=== PATIENT | male | born 1950 | race Caucasian/White ===

== ENCOUNTER 2018-05-02 18:06 | Emergency (ER) | payer MEDICARE, SELFPAY ==
[2018-05-02 18:06] VITALS: BP 135/84; PULSE 71; RESP 14; O2SAT 97
[2018-05-02 18:07] VITALS: BP 135/84; PULSE 70; RESP 18; TEMP 36.6; O2SAT 98; BMI 27.5
--- NOTE | 2018-05-02 19:30 | RAD_ITS ---
STUDY: X-RAY - PARANASAL SINUSES REASON FOR EXAM: Male, 67 years old. Laceration to the left ear TECHNIQUE: 3 view(s) of the paranasal sinuses were obtained. COMPARISON: None. FINDINGS: Normal visualized frontal, maxillary, ethmoidal and sphenoid sinuses. Normal visualized facial bones. The soft tissue structures are unremarkable. RAD/Sinuses min 3 Views IMPRESSION: Normal x-rays of the paranasal sinuses. Electronically Signed: Onofre Dominique DO at 20:40 EDT Tel , Service support ,
[2018-05-02] MEDS: HYDROcodone Bitartrate/Apap 5/325 Tablet PO (19:45)
--- NOTE | 2018-05-02 19:46 | ED.DCSUM_ITS ---
- ER Visit Summary Date of Service: 05/02/18 Chief Complaint: Left ear laceration History of Present Illness: The patient is a 67 M presents to the emergency department left ear laceration. Patient was grinding a piece of metal. He states that he felt blood dripping from his ear. He cannot recall actually being injured. He denies any other injury. His tetanus is up-to-date. He takes no daily medications. He denies any change in hearing. Physical Examination: Patient has a 2 cm full-thickness laceration that goes through and through the left ear. There is some tenderness to palpation. There is no hematoma. TM itself is intact. Neck is supple. Rest of exam is unremarkable. Test Results: [] Emergency Department Course and Treatment: The laceration did seem much smaller , but once it was finally anesthetized, it was full-thickness through the cartilage of the pinna of the ear. I did obtain plain films to make sure there was no retained metallic bodies. These were unremarkable. The cartilage was closed with rapid absorbing Vicryl with good reapproximation. The area was irrigated and the skin was closed with 11 simple interrupted suture. As this was a full-thickness puncture, the patient will be placed on antibiotics. I did counselor/art therapist him that this area can sometimes be difficult to heal and is at risk for infection. He did state if anything changes, he will return immediately. The patient will be discharged. Treatment Plan: [] Disposition: Discharge Impression: 1. 3 cm full-thickness tear laceration with complex repair This note was generated with [employer] dictation software. It may contain incorrect words, spelling, and punctuation that were not noted in review of the chart prior to signing ED Disposition - Plan for ED Patient: Chief Complaint: Laceration Instructions: ED Laceration All Prescriptions: Cephalexin [Keflex] 500 mg PO Q6 #40 cap Referrals: Williams Anders MD [STAFF PHYSICIAN] -
[2018-05-02] MEDS: Cephalexin 250 MG Capsule 500 MG PO (21:12)
[2018-05-02 21:15] VITALS: BP 135/89; PULSE 70; RESP 14; O2SAT 97
== END 2018-05-02 21:18 | disposition home or self-care (01) ==
PROVIDERS: Emergency Provider Emergency Medicine
DX: S01.312A Laceration without foreign body of left ear, initial encounter (principal); X58.XXXA Exposure to other specified factors, initial encounter; Y93.89 Activity, other specified; Y92.9 Unspecified place or not applicable; Z72.0 Tobacco use
CPT/HCPCS: 12052; 70220; 99283

== ENCOUNTER 2023-08-19 19:44 | Emergency (ER) | payer MEDICARE, SELFPAY ==
[2023-08-19 19:45] VITALS: BP 116/99; PULSE 78; RESP 15; TEMP 36.6; O2SAT 97; BMI 29.2
--- NOTE | 2023-08-19 20:11 | RAD_ITS ---
INDICATION: Injury/Pain EXAMINATION/TECHNIQUE: X-RAY - XR cervical spine with lateral, AP, odontoid views COMPARISON: None. FINDINGS: This patient has no significant listhesis. Mild disc narrowing C2/C3, C5/C6 and C6/C7. Minimal multilevel anterior osteophytosis. Mild mid to lower cervical spine uncovertebral joint spurring. Multilevel facet arthropathy. Prevertebral soft tissues are within normal limits. Lung apices show no acute abnormality. C1/2 relationship is preserved. RAD/Cerv Spine 2 or 3 Views IMPRESSION: Cervical spine degenerative change with no acute fracture identified. Electronically Signed: Vinicius Morgan MD at 20:29 EDT ,
--- NOTE | 2023-08-19 20:14 | EX.ED.DYSGE1 ---
HPI History of Present Illness Chief Complaint: Other, Pain/Inj Informant: patient Onset/Context/Timing Onset: Yesterday Context: Gradual Onset Timing: Continuous Quality: Throbbing but sharp with movement Location: Right cervical paraspinal muscles Worsened by: Movement Relieved by: Rest Narrative Narrative: Patient presents with neck pain that began yesterday. Patient states it is gradually getting worse. Patient denies any trauma or injury. Patient states it is mainly over the right side of his neck. Patient states it is worse with movement. Patient states it is better with rest. Patient denies any radiation of the pain. Patient denies any paresthesias or weakness. Patient states he was taking Tylenol at home with no relief. [facility] Medical History (Updated 08/19/23 @ 20:[address] Ricardo Tran DO) Anxiety and depression Bone fracture Home Medications cyclobenzaprine 10 mg tablet 10 mg PO QHS PRN PRN Muscle Spasm #10 TABLETS 08/19/23 [Rx Last Taken Unknown] hydrocodone-acetaminophen 5-325mg 5mg-325mg 1 tab PO Q6H PRN PRN Pain 3 days #10 TABLETS 08/19/23 [Rx Last Taken Unknown] Allergy/AdvReac Type Severity Reaction Status Date / Time No Known Allergies Allergy Verified 08/19/23 19:49 Family History (Updated 05/16/18 @ 16:43 by Juany Frias) Father Diabetes Hypertension High cholesterol Psychiatric care Sister Depression (emotion) Psychiatric care Brother Epilepsy Seizures Surgical History (Updated 08/19/23 @ 20:[address] Ricardo Tran DO) Hx of appendectomy S/P ORIF (open reduction internal fixation) fracture Social History Smoking Status: Former smoker alcohol intake: former substance use type: does not use ROS ROS ED Constitutional Constitutional ED: Denies chills or fever(s) Eyes Eyes: Denies blurry vision or change in vision ENT ENT ED: Denies rhinorrhea or sore throat Cardiovascular Cardiovascular: Denies chest pain or palpitations Respiratory/Chest Respiratory/Chest: Denies cough or dyspnea Gastrointestinal Gastrointestinal: Denies nausea or vomiting Genitourinary Genitourinary ED: Denies dysuria or hematuria Musculoskeletal Musculoskeletal: Reports neck pain; Denies back pain Integumentary Denies abscess or rash Neurologic Neurologic: Denies headache(s) or weakness Allergic/Immunologic Allergic/Immunologic ED: Denies mouth swelling or urticaria EXAM Physical Exam Const Vital Signs: 08/19/23 19:45 08/19/23 19:55 Temperature 97.9 F Temperature Source Temporal Pulse Rate 78 Respiratory Rate 15 Respiratory Effort Normal Non-Labored Blood Pressure 116/99 H Blood Pressure Mean 104 Pulse Ox 97 Oxygen Delivery Method Room Air Positive well nourished and well developed General Appearance ED: well developed and NAD HEENT Reports moist mucous membranes Neck no JVD Neck Narrative: There is tenderness and spasm of the right cervical paraspinal muscles. There is no midline tenderness. There is no bony crepitance or step-off. There is no edema or ecchymosis noted. Range of motion was limited in all motions of the cervical spine secondary to pain. Strength is 5/5 bilaterally upper extremities. There are no sensory deficits noted. General: tenderness Extremity normal to inspection Neuro oriented x3, CN's II-XII intact bilaterally and no sensory deficits noted Sensorium / Orientation: alert Motor Exam: strength 5/5 throughout Psych mental status grossly normal MDM MDM MDM Narrative Medical decision making narrative: Differential diagnosis includes cervical strain, occult cervical spine fracture, degenerative arthritis, and cervical paraspinal spasm. X-rays of the cervical spine will be obtained to assess for degenerative changes and occult fracture. Radiography Diagnostic Testing: Clinical Impression(s) from Imaging Studies Cervical Spine X-Ray 08/19/23 20:11 IMPRESSION: Cervical spine degenerative change with no acute fracture identified. Electronically Signed: Vinicius Morgan MD at 20:29 EDT , X-rays of the cervical spine were obtained. There are 5 views. On my independent interpretation, there is no acute fracture or spondylolisthesis. There are some degenerative changes noted. Radiologist also interpreted the x-rays and agrees. Treatment and Re-Evaluation :: Patient was given a dose of [place] and Flexeril here. Patient was advised of his findings. Patient was given prescriptions for [place] and Flexeril. Patient instructed use ice to the area. Patient was instructed to follow-up with his primary care physician in 5 to 7 days for reevaluation. Patient understood and was agreeable with the plan. All questions were answered. Discharge Plan Triage Chief Complaint: Other, Pain/Inj ED Provider: Ricardo Tran Dx/Rx/DC Orders Clinical Impression: Acute cervical myofascial strain Instructions: ED Neck Sprain or Strain Prescriptions: New cyclobenzaprine [cyclobenzaprine] 10 mg tablet 10 mg PO QHS PRN PRN (Reason: Muscle Spasm) Qty: 10 0RF hydrocodone-acetaminophen [hydrocodone-acetaminophen] 5-325 mg tablet 1 tab PO Q6H PRN PRN (Reason: Pain) 3 Days Qty: 10 0RF Primary Care Provider: Laron Akbar Referrals: Laron Akbar DO [Primary Care Provider] - 3-5 Days Disposition Disposition: Home, Self Care
[2023-08-19] MEDS: cycloBENZAPRine HCl 10 MG Tablet PO (20:22)
[2023-08-19] MEDS: HYDROcodone Bitartrate/Apap 5/325 Tablet PO (20:22)
== END 2023-08-19 20:43 | disposition home or self-care (01) ==
PROVIDERS: Emergency Provider Emergency Medicine; PCP Student in an Organized Health Care Education/Training Program; Visit Provider Emergency Medicine
DX: S16.1XXA Strain of muscle, fascia and tendon at neck level, initial encounter (principal); Z87.891 Personal history of nicotine dependence; X58.XXXA Exposure to other specified factors, initial encounter
CPT/HCPCS: 72040; 99283

== ENCOUNTER 2024-02-18 16:02 | Outpatient (RCR) | payer MEDICARE, SELFPAY ==
--- NOTE | 2024-02-19 13:12 | HP.PTEVAL_ITS ---
Patient's Visit Information Visit Information Visit Information: SHERIDAN MARVIN is a 73 year old M referred to Physical Therapy by THOR Walker with a diagnosis of R knee and hip strain, possible HS strain. Date of Evaluation: 02/18/24 Physical Therapist: Jeff Arnold DPT Visit Plan Frequency: 2x /Week Duration: 4 Weeks Plan: Start with RLE strengthening and progressive functional strengthening. Wean from crutches, progress stair negotiation. Subjective Subjective: Pt. is here today for his initial evaluation with diagnosis of R knee and hip sprain, possible HS strain. Pt. reports ~10 days ago he was working at went to step off a lift and felt a pop in his knee and hip. He reports once that happened he was not able to lift his leg and that his leg was unable to hold him up. Pt. reports going that day to the hospital that day. The had xrays of knee and hip as well as an MRI and CAT scan. He reports having a degenerative meniscal tear, but everything else was relatively clear. Marked arthritis as well in his R knee. Pt. reports overall the numbness and weakness is much better. He is still using B crutches in community, but not at home. Pt. has been doing some exercises and stretching at home with decent results. Pt. is overall much better than he was previously. Pt. is taking Advil for his pain. Pt. is hopeful to get back to all work and recreational activities without limitations. Pain R knee: Pain Intensity (Out of 10): 0 Pain Intensity Range: 0 and 2 Objective Objective: POSTURE: pt. has increased wt. shift to L side in stance. Pt. lacks TKE on R side. Slight overall flexed posture. PALPATION: Pt. has increased tenderness at medial HS, but swelling noted. NEURO: Normal sensation and normal DTR of BLEs. ROM: LUMBAR SPINE: flexion min loss NE, ext min loss NE, SB min/mod loss NE, rotation min loss bilat NE. R hip: flexion 120deg NE, IR 20deg NE, ER 45deg NE, ext 20deg NE.; Knee: 0-5-128deg. Pt has tight HS bilaterally. MMT: ankle 5/5 throughout; knee: ext 23.5, flexion 21.8. No pain noted; hip: flexion 21.1#, abd 16.7#, ext 14.8#. Core strength: poor+. GAIT: Pt. ambulates with crutches with good tolerance, slight lack of knee extension. I had him walk without crutches with slightly more antalgic, but improved with repetition. STAIRS: step to pattern. Special Tests L/S Slump test left side: Negative L/S Slump test right side: Negative L/S Left Straight Leg Raise: Negative L/S Right Straight Leg Raise: Negative Lumbar Standing: Flexion - Mechanical Response: No effect Lumbar Standing: Flexion - Symptoms During Testing: No effect Lumbar Standing: Flexion - Symptoms After Testing: No effect Lumbar Standing: Extension - Mechanical Response: No effect Lumbar Standing: Extension - Symptoms During Testing: No effect Lumbar Standing: Extension - Symptoms After Testing: No effect Lumbar Standing: Right Side Glides - Mechanical Response: No effect Lumbar Standing: Right Side [place] - Symptoms During Testing: No effect Lumbar Standing: Right Side [place] - Symptoms After Testing: No effect Lumbar Standing: Left Side [place] - Mechanical Response: No effect Lumbar Standing: Left Side [place] - Symptoms During Testing: No effect Lumbar Standing: Left Side [place] - Symptoms After Testing: No effect R Hip Scour: Negative R Hip ERICA - Intraarticular Pathology: Negative R Hip FADDIR - Labrum: Negative R Knee [place] - Meniscus: Positive R Knee Valgus - MCL: Negative R Knee Varus - LCL: Negative Balance/Special Test Scores Lower Extremity Functional Score: 37 Goals Goal 1:: LTG: pt. to be I with HEP for RLE strengthening. Goal Time Frame: 2-4 Weeks Goal 2:: LTG: Pt. to be able to ambulate without use of crutches with out increase in pain and normal gait pattern. Goal Time Frame: 4-6 Weeks Goal 3:: LTG: Pt. to negotiate steps with reciprocal pattern with 1 HR without issues. Goal Time Frame: 4-6 Weeks Goal 4:: LTG: Pt. to be able to complete all work related activities without increase in symptoms. Goal Time Frame: 4-6 Weeks Rehabilitation Potential Physical Therapy Diagnosis: Pt. has signs and symptoms consistent with possible HS strain. He is overall improved since his initial injury, but still has some lack of R knee extension. His numbness is gone, but still feels weaker. I would like for him to continue with PT to work on RLE strengthening progressive g ait/functional mobility in order to get back to all work and recreational activities without limitations. Rehabilitation Potential: Excellent Anticipated Interventions Patient/Client Instruction: Educate patient on: Condition, Plan of Care, Risk Factors and Benefits of Fitness Program For the Purpose of:: To facilitate caregiver knowledge, To improve self management, To prevent re-injury, To improve ability to perform tasks related to life management and To improve tolerance to ADL's Therapeutic Exercise to Include: Strength training, Power training, Postural training, Flexibilty training and Gait and locomotor training For the Purpose of:: To decrease pain, To increase ROM, To improve nutrient delivery to tissue, To increase oxygenation perfusion, To improve muscle performance and motor function, To improve ability to perform ADL's and To in crease tolerance to activity/condition/position Manual Therapy Techniques to Include: Mobilization For the Purpose of:: To decrease pain, To decrease swelling/inflammation, To increase ROM and To improve nutrient delivery to tissue Text: Thank you for the opportunity to evaluate your patient. For Medicare and Medicare HMO plans, please review the plan of care and approve it. It will need to be FAXED BACK to us at [phone] for Medicare purposes. For Medicare only, by signing this I certify the plan of care. Please let me know if there are questions or concerns regarding this plan of care. Physician Signature: Date:
== END 2024-02-18 19:00 | disposition home or self-care (01) ==
LOC: PT 16:02
PROVIDERS: PCP Student in an Organized Health Care Education/Training Program; Referring Provider Physician Assistant Surgical; Visit Provider Physician Assistant Surgical
DX: S83.8X1D Sprain of other specified parts of right knee, subsequent encounter (principal); M17.11 Unilateral primary osteoarthritis, right knee
CPT/HCPCS: 97110; 97161

== ENCOUNTER 2024-07-15 18:30 | Outpatient (RCR) | payer MEDICARE, SELFPAY ==
--- NOTE | 2024-04-16 11:11 | HP.PTEVAL ---
Patient's Visit Information Visit Information Visit Information: SHERIDAN MARVIN is a 73 year old M referred to Physical Therapy by THOR Walker with a diagnosis of Right Knee Scope. Date of Evaluation: 04/16/24 Physical Therapist: Emilia Howell DPT Visit Plan Frequency: 2x /Week Duration: 4 Weeks Plan: Right Arthroscopic Knee Scope 04/09/24- Focus on functional mobility- strength, proprioception- stairs and gait HEP Given IE: quad set, SLR, seated extn stretch, SLS, sit to stand Subjective Subjective: Patient reports that he had arthroscopic surgery on the right knee a week ago 04/09/24. He is still using the crutches when he is on uneven surfaces or long distances. The pain is located under the knee cap. He goes back to the [facility] today to get the sutures out today. Worst: 2/10 Best: 0/10. Eases: crutches, ice and elevation. No pain that is radiating. No N/T in the leg. Sleep: not disturbed. He is doing some exercises- squatting, standing quad stretches, HR/TR, Hamstring stretch. He does not really have to do stairs at home so he has not really done them. Now the left knee is acting up and he may have to have it done. Goals are to strengthen the knee. Objective Objective: Posture: forward head, rounded shoulders- can correct with verbal cues Gait: slightly antalgic- decreased stance on the right LE- poor heel/toe due to decreased ROM- Stairs: asc- recip with poor stance on the right LE- desc: recip with poor control HR/TR: able with UE A SLS: weight shift only ROM: 10 degrees from full extension to 125 degrees of flexion with pain at end range Strength: Core: fair, Hip: 4/5 throughout- SLR: mild lag due to extension deficit, Knee: Flexion: 25 Extn: 35 both testing caused discomfort extn>flexion Ankle: 5/5 Flexion: HS: severe, Gastroc: severe Incision: unable to see due to compression hose- will see MD today- he will remove sutures and inspect incision. Balance/Special Test Scores Lower Extremity Functional Score: 35 Goals Goal 1:: Patient will be I with HEP and progression Goal Time Frame: 4-6 Weeks Goal 2:: Patient will asc/desc 8 stairs recip with no HR Goal Time Frame: 4-6 Weeks Goal 3:: Patient will ambulate >150 feet with a normalized gait pattern Goal Time Frame: 4-6 Weeks Goal 4:: Patient will SLS for 30 sec without LOB Goal Time Frame: 4-6 Weeks Goal 5:: Patient will report 80% improvement Goal Time Frame: 4-6 Weeks Rehabilitation Potential Physical Therapy Diagnosis: Patient presents with hypomobility s/p right knee scope- he has decreased pain free knee ROM, strength/stabilization, proprioception and muscular endurance leading to abnormal gait and increased pain with ADL's. Rehabilitation Potential: Fair Anticipated Interventions Patient/Client Instruction: Educate patient on: Benefits of Fitness Program Therapeutic Exercise to Include: Strength training, Endurance training, Balance training, Coordination, Agility training, Body mechanics, Postural training, Flexibilty training, Gait and locomotor training, Neuromotor development, Passive ROM, Active ROM, Dynamic Lumbar Stabilization and Scapular Strength/Stabilization For the Purpose of:: To improve muscle performance and motor function Cryotherapy (ice pack, ice massage): Yes Thermo therapy (hot pack): Yes Text: Thank you for the opportunity to evaluate your patient. For Medicare and Medicare HMO plans, please review the plan of care and approve it. It will need to be FAXED BACK to us at [phone] for Medicare purposes. For Medicare only, by signing this I certify the plan of care. Please let me know if there are questions or concerns regarding this plan of care. Physician Signature: Date:
--- NOTE | 2024-06-10 18:33 | HP.PTREVAL ---
Re-Evaluation Intro: THOR Walker, It has been my pleasure to treat SHERIDAN MARVIN over the last 8 visits for Right Knee Scope. Please see the progress note below for an update on the physical therapy plan of care! Subjective Subjective: 5 workouts in 2 weeks at [employer]. Knees tolerating OK. Exercises working and he is getting stronger. R quad feels tight. 2/10 pain but worse if goes up up steps. Sleep is not great some nights. Not necessarily the knee. To doctor 06/16 Objective Objective/Function: -2 to 130 AROM, some mild discomfort at end range. quad R is tight and tender distally, feels good to stretch Walking with cane well and able to walk without it. Plan Plan Plan: pt wishes to f/u in 5 weeks and ensure goals being met adn doing better. check FGA, steps with R(strength) and quad tenderness/flexibility R. Wants to get rid of cane. Balance/Gait/Functional tests Balance/Special Test Scores Lower Extremity Functional Score: 39 Goals Goals Goal 1:: Patient will be I with HEP and progression Goal Time Frame: 4-6 Weeks Goal Progress: Goal Met Goal 2:: Patient will asc/desc 8 stairs recip with no HR Goal Time Frame: 4-6 Weeks Goal Progress: Goal Met Goal 3:: Patient will ambulate >150 feet with a normalized gait pattern Goal Time Frame: 4-6 Weeks Goal Progress: Goal Met Goal 4:: Patient will SLS for 30 sec without LOB Goal Time Frame: 4-6 Weeks Goal Progress: Goal Met Goal 5:: Patient will report 80% improvement Goal Time Frame: 4-6 Weeks Goal Progress: Goal Met Goal 6:: climb steps R without rail walk community without cane Goal Time Frame: 4-6 Weeks Goal Progress: NEW GOAL Anticipated Interventions Anticipated Interventions Patient/Client Instruction: Educate patient on: Benefits of Fitness Program Therapeutic Exercise to Include: Strength training, Endurance training, Balance training, Coordination, Agility training, Body mechanics, Postural training, Flexibilty training, Gait and locomotor training, Neuromotor development, Passive ROM, Active ROM, Dynamic Lumbar Stabilization and Scapular Strength/Stabilization For the Purpose of:: To improve muscle performance and motor function Cryotherapy (ice pack, ice massage): Yes Thermo therapy (hot pack): Yes Re-Evaluation Ending Re-evaluation ending: Please do not hesitate to contact me at [phone] by phone or if you have questions or concerns regarding this new plan of care! Sincerely, Ricardo Franks, DPT, OCS, CSCS
--- NOTE | 2024-07-15 18:45 | HP.PTDCSUM_ITS ---
Discharge Summary D/C summary: It has been my pleasure to treat SHERIDAN MARVIN referred by THOR Walker, with the diagnosis of Right Knee Scope for a total of 9 visit(s). Discharge Date: Please see the following information for a summary of their discharge status. Subjective Subjective: Pain level is minimal. Much bettere than before surgery. just stiff in am and if he is stagnant. Sometimes more on the left. Life normal for last 5 weeks. Sleeping well. 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 Not able to be consistent with [employer] fitness workout. 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 Pain Right Knee: Pain Intensity (Out of 10): 2 Overall Improvement % Improvement: 95 Objective Objective/Function: 0-130 AROM without pain, similar flexibility to opposite side. walking without deficits, steps reciprocal without rail up and down easily today.No AD needed. Goals Goal 1:: Patient will be I with HEP and progression Goal Progress: Goal Met Goal 2:: Patient will asc/desc 8 stairs recip with no HR Goal Progress: Goal Met Goal 3:: Patient will ambulate >150 feet with a normalized gait pattern Goal Progress: Goal Met Goal 4:: Patient will SLS for 30 sec without LOB Goal Progress: Goal Met Goal 5:: Patient will report 80% improvement Goal Progress: Goal Met Goal 6:: climb steps R without rail walk community without cane Goal Progress: Goal Met Plan Plan: d/c to HEP D/C Information d/c sentence: If there are questions or concerns regarding this patient's physical therapy, please feel free to call me at [phone]. Thank you for the referral of this patient. Sincerely, Ricardo Franks, DPT, OCS, CSCS Balance/Gait/Functional tests Balance/Special Test Scores Lower Extremity Functional Score: 51 Improvement % Improvement: 95
== END 2024-07-15 19:00 | disposition home or self-care (01) ==
LOC: PT 18:30
PROVIDERS: PCP Student in an Organized Health Care Education/Training Program; Visit Provider Physician Assistant Surgical
DX: S83.8X1D Sprain of other specified parts of right knee, subsequent encounter (principal); S83.231D Complex tear of medial meniscus, current injury, right knee, subsequent encounter; M25.461 Effusion, right knee
CPT/HCPCS: 97110; 97162; 97530

== ENCOUNTER 2025-04-24 15:33 | Emergency (ER) | payer MEDICARE, SELFPAY ==
[2025-04-24 15:34] VITALS: BP 173/76; PULSE 64; RESP 16; TEMP 36.5; O2SAT 99; BMI 29.0
--- NOTE | 2025-04-24 16:53 | CT_ITS ---
EXAM: BRAIN/HEAD WITHOUT CONTRAST CLINICAL HISTORY: 74 y/o M with CONFUSION. COMPARISON: None. TECHNIQUE: Routine CT imaging of the head without IV contrast. Additional multiplanar reformats were obtained. Dose reduction techniques were used including intermediate exposure control (AEC),iterative reconstruction technique, and/or mA and/or KV dose adjustments based on patient's size. FINDINGS: Moderate generalized cerebral volume loss with concordant prominence of the ventricles and subarachnoid spaces. Mild scattered supratentorial white matter hypodensities. Chronic, small left cerebellar infarct. The martinez-white matter interfaces are otherwise maintained. No acute intracranial hemorrhage or herniation. The basal cisterns are patent. The orbits, visualized paranasal sinuses and mastoids are unremarkable. No acute calvarial fracture or scalp hematoma. CT/Brain/Head without Contrast IMPRESSION: No acute intracranial finding. Reading Location: [id number]
--- NOTE | 2025-04-24 16:54 | CT_ITS ---
EXAM: CT Abdomen and Pelvis With Intravenous Contrast CLINICAL INDICATION: ABDOMINAL PAIN TECHNIQUE: Axial computed tomography images of the abdomen and pelvis with intravenous contrast. This CT exam was performed using one or more of the following dose reduction techniques: automated exposure control, adjustment of the mA and/or kV according to patient size, and/or use of iterative reconstruction technique. COMPARISON: No relevant prior studies available. FINDINGS: LUNG BASES: Unremarkable. No mass. No consolidation. ABDOMEN: LIVER: Fatty infiltration of the liver. GALLBLADDER AND BILE DUCTS: Unremarkable. No calcified stones. No ductal dilation. PANCREAS: Unremarkable. No mass. No ductal dilation. SPLEEN: Unremarkable. No splenomegaly. ADRENALS: Unremarkable. No mass. KIDNEYS AND URETERS: Left renal cyst. No hydronephrosis. STOMACH AND BOWEL: Fecal retention in the colon consistent with constipation. Colonic diverticulosis without acute diverticulitis. No obstruction. PELVIS: APPENDIX: No findings to suggest acute appendicitis. BLADDER: Bladder wall thickening which may be due to the decompressed state of the bladder or due to cystitis. REPRODUCTIVE: Unremarkable as visualized. ABDOMEN and PELVIS: INTRAPERITONEAL SPACE: Unremarkable. No free air. No significant fluid collection. BONES/JOINTS: No acute fracture. No dislocation. SOFT TISSUES: Inguinal hernias, bilaterally. VASCULATURE: Scattered calcified atherosclerotic disease of aorta. No abdominal aortic aneurysm. LYMPH NODES: Unremarkable. No enlarged lymph nodes. CT/Abdomen/Pelvis W IV Cont ONLY IMPRESSION: 1. Bladder wall thickening which may be due to the decompressed state of the b ladder or due to cystitis. 2. Fecal retention in the colon consistent with constipation. 3. Inguinal hernias, bilaterally. 4. Colonic diverticulosis without acute diverticulitis. Reading Location: [facility]
--- NOTE | 2025-04-24 16:54 | EX.ED.DYSGE1 ---
HPI History of Present Illness Chief Complaint: General Illness Detail of Chief Complaint: Confusion and concern for heatstroke Informant: patient Narrative Narrative: Patient presents the emergency department with complaint confusion and concern for possible heatstroke. Patient states that he was working on a roof outdoors 3 days ago wearing black and he thinks he got overheated. States that he just does not feel right. He felt really hot yesterday. Started having some abdominal discomfort yesterday that was mild but became more severe today and vomited about 4 times. He had a headache yesterday but that seems to be mostly resolved now. Patient denies cough or sore throat. Denies urinary symptoms. [facility] Medical History (Updated 04/24/25 @ 19:[address] Akilah Herrera, DO) Anxiety and depression Bone fracture Home Medications ?Medication ?Instructions ?Recorded ?Last Taken ?Type cyclobenzaprine 10 mg tablet 10 mg PO QHS PRN PRN Muscle Spasm 08/19/23 Unknown Rx #10 TABLETS hydrocodone-acetaminophen 5-325mg 1 tab PO Q6H PRN PRN Pain 3 days 08/19/23 Unknown Rx 5mg-325mg #10 TABLETS Allergy/AdvReac Type Severity Reaction Status Date / Time No Known Allergies Allergy Verified 08/19/23 19:49 Family History (Updated 05/16/18 @ 16:43 by Juany Frias) Father Diabetes Hypertension High cholesterol Psychiatric care Sister Depression (emotion) Psychiatric care Brother Epilepsy Seizures Surgical History (Updated 08/19/23 @ 20:[address] Ricardo Tran, DO) Hx of appendectomy S/P ORIF (open reduction internal fixation) fracture Social History Smoking Status: Former smoker alcohol intake: former substance use type: does not use ROS ROS ED Review of Systems ROS Unobtainable: other Constitutional Constitutional ED: Reports lethargy; Denies chills, fever(s), sweats or weight loss Eyes Eyes: Denies blurry vision, change in vision or diplopia ENT ENT ED: Denies rhinorrhea or sore throat Cardiovascular Cardiovascular: Denies chest pain, orthopnea or racing heartbeat Respiratory/Chest Respiratory/Chest: Denies cough, dyspnea, dyspnea on exertion, orthopnea or sputum Gastrointestinal Gastrointestinal: Reports abdominal pain, nausea and vomiting; Denies diarrhea Genitourinary Genitourinary ED: Denies dysuria, hematuria or urinary frequency Musculoskeletal Musculoskeletal: Denies arthralgias, back pain, myalgias or neck pain Integumentary Denies abscess, Abrasions or rash Neurologic Neurologic: Reports headache(s) and other Details: Confusion, difficulty with short-term memory ; Denies weakness Psychiatric Psychiatric: Denies anxiety, depression or suicidal thoughts Endocrine Endocrinology: Denies polydipsia, polyphagia or polyuria Hematologic/Lymphatic Hematologic/Lymphatic: Denies easy bleeding, easy bruising or lymphadenopathy Allergic/Immunologic Allergic/Immunologic ED: Denies mouth swelling, tongue swelling or urticaria EXAM Physical Exam Const Vital Signs: 04/24/25 15:34 04/24/25 16:34 04/24/25 17:34 Temperature 97.7 F L Temperature Source Oral Pulse Rate 64 68 Respiratory Rate 16 14 Respiratory Pattern Normal Blood Pressure 173/76 H 145/81 H Blood Pressure Mean 108 102 Pulse Ox 99 97 Oxygen Delivery Method Room Air Room Air Positive well nourished and well developed General Appearance ED: well developed and NAD HEENT Reports TM's clear and moist mucous membranes normocephalic and atraumatic; Negative for trauma or tenderness Tympanic Membrane ED: Yes TM's clear Eyes PERRL and EOMs intact bilaterally General Eye ED: Negative for pale conjunctiva or scleral icterus Neck no lymphadenopathy, supple and no JVD General: Negative for tenderness Chest Wall inspection of chest normal and palpation of chest normal Chest: Negative for tenderness Resp normal respiratory effort and clear to auscultation bilaterally Effort and Inspection: Negative for respiratory distress or pain with movement Auscultation: Negative for rhonchi, wheezes or diminished lung sounds Cardio regular rate, regular rhythm, S1 normal heart sound, S2 normal heart sound and no murmurs Peripheral Pulses: pulses 2+ throughout GI normal to inspection, nondistended, normoactive bowel sounds, soft to palpation, non-distended and no masses GI Narrative: Mild diffuse tenderness. Tenderness palpation over left lower quadrant suprapubic region with some guarding. There is no rebound, rigidity, peritoneal signs. No mass palpated Back/Spine no CVA tenderness and no thoracic nor lumbar tenderness Extremity normal to inspection General Extremety ED: Negative for edema General Extremity: Negative for edema Neuro oriented x3, CN's II-XII intact bilaterally, no sensory deficits noted and gait normal Sensorium / Orientation: awake, alert, oriented to person, oriented to place and oriented to time Motor Exam: strength 5/5 throughout and strength abnormal Psych mental status grossly normal Skin no rashes or lesions noted and no wounds MDM MDM MDM Narrative Medical decision making narrative: Patient presents with multiple complaints of not feeling well. He had some abdominal discomfort yesterday and some vomiting today. He has had some forgetfulness and had a headache yesterday. Denies recent illness but subjectively felt hot yesterday. Symptoms started after working on a hot roof. Patient thinks that maybe he had heatstroke. Patient clinically looks well. IV line established on arrival. EKG obtained showed sinus rhythm with rate of 61 bpm with no acute ST segment changes. CBC with differential shows a white count of 6.7 with hemoglobin 11.6 and platelet count of 265. Chemistries were unremarkable. LFTs were normal. Urinalysis without signs of infection. Patient had a CT scan of the brain without contrast that was unremarkable. Patient also had a CT scan of the abdomen pelvis with IV contrast that showed no acute process. This point etiology of symptoms unclear. Patient clinically looks well. Advised to push fluids and follow-up with primary care physician within the next 3 to 5 days. Discharged to home stable condition. Lab Data Attestation: I reviewed the patient's lab results. Labs: Laboratory Results - last 24 hr 04/24/25 04/24/25 17:05 17:08 WBC 6.7 RBC 4.52 L Hgb 11.6 L Hct 36.2 L MCV 80.1 MCH 25.7 L MCHC 32.0 RDW Std Deviation 49.7 H RDW Coeff of Sissy 16.9 H Plt Count 265 MPV 9.4 Immature Gran % (Auto) 0.400 Neut % (Auto) 75.8 H Lymph % (Auto) 14.9 L [place] % (Auto) 7.9 Eos % (Auto) 0.4 Baso % (Auto) 0.6 Absolute Neuts (auto) 5.1 Absolute Lymphs (auto) 1.00 Nucleated RBC % 0 Sodium 136 Potassium 4.3 Chloride 104 Carbon Dioxide 23.0 Anion Gap 9 BUN 11 Creatinine 0.73 Estim Creat Clear Calc 83.90 Est GFR (MDRD) Non-Af 96 BUN/Creatinine Ratio 14.5 Glucose 103 H Calcium 9.0 Total Bilirubin 0.41 AST 22 ALT 16 Alkaline Phosphatase 95 Troponin T High Sens 8 Total Protein 6.6 Albumin 3.8 Globulin 2.8 Albumin/Globulin Ratio 1.4 Urine Color Yellow Urine Clarity Cloudy Urine pH 8.0 Ur Specific [place] 1.015 Urine Protein Negative Urine Glucose (UA) Normal Urine Ketones 15 H Urine Occult Blood Negative Urine Nitrite Negative Urine Bilirubin Negative Urine Urobilinogen Normal Ur Leukocyte Esterase Negative Urine RBC 0 SEEN Urine WBC 0 SEEN Ur Squamous Epith Cells 0 SEEN Amorphous Sediment 3+ Urine Bacteria 0 SEEN Urine Mucus 0 SEEN Radiography Diagnostic Testing: Clinical Impression(s) from Imaging Studies Brain CT 04/24/25 16:53 IMPRESSION: No acute intracranial finding. Reading Location: [facility] Abdomen/Pelvis CT 04/24/25 16:54 IMPRESSION: 1. Bladder wall thickening which may be due to the decompressed state of the bladder or due to cystitis. 2. Fecal retention in the colon consistent with constipation. 3. Inguinal hernias, bilaterally. 4. Colonic diverticulosis without acute diverticulitis. Reading Location: [facility] Discharge Plan Triage Chief Complaint: General Illness ED Provider: Akilah Herrera Dx/Rx/DC Orders Clinical Impression: Abdominal pain, Vomiting, Heat exhaustion Instructions: ED Heat Exhaustion, ED Vomiting (Adult), ED Abdominal Pain Unkn Cause Male... Prescriptions: No Action cyclobenzaprine [cyclobenzaprine] 10 mg tablet 10 mg PO QHS PRN PRN (Reason: Muscle Spasm) Qty: 10 0RF hydrocodone-acetaminophen [hydrocodone-acetaminophen] 5-325 mg tablet 1 tab PO Q6H PRN PRN (Reason: Pain) 3 Days Qty: 10 0RF Primary Care Provider: Laron Akbar Referrals: Laron Akbar DO [Primary Care Provider] - Print Language: Wallisian Disposition Disposition: Home, Self Care
[2025-04-24 17:14] LABS: Bacteria 0 SEEN /hpf (None Seen); Mucous, Urine 0 SEEN /hpf (<or=2+); Red Blood Cells-Urine 0 SEEN /hpf (0-5); Squamous Epithelial Cells - UA 0 SEEN /hpf (0-5); White Blood Cells 0 SEEN /hpf (0-5)
[2025-04-24 17:18] LABS: Color, Urine Yellow (Yellow); Glucose, Dipstick Normal (Normal); Ketone-Dipstick 15 mg/dl (Negative); Leukocyte Esterase-Dipstick Negative /ul (Negative); Nitrite-Dipstick Negative (Negative); Occult Blood-Urine Negative /ul (Negative); Protein-Dipstick Negative (Negative); Specific Gravity, Urine 1.015 (1.002-1.030); Urine Bilirubin Dipstick Negative (Negative); Urine Clarity Cloudy (Clear); Urine Urobilinogen Normal (Normal)
[2025-04-24 17:24] LABS: Absolute Neutrophil Count 5.1 X10^3/uL (2.0-7.7); Basophil# 0.04 X10^3/uL; Basophil% 0.6 % (0-1); Eosinophil# 0.03 X10^3/uL; Eosinophils% 0.4 % (0-5); Hematocrit 36.2 % (40-54); Hemoglobin 11.6 g/dL (13.0-16.5); Lymphocyte % 14.9 % (19-41); Mean Corpuscular Hgb 25.7 pg (27.0-32.0); Mean Corpuscular Volume 80.1 fL (80-94); Mean Platelet Vol. 9.4 fl (6.2-12.0); Monocyte# 0.53 X10^3/uL; Monocyte% 7.9 % (0-10); NRBC Flagged by Analyzer 0 % (0-5); Neutrophil # 5.09 X10^3/uL (2.7-7.7); Neutrophil % 75.8 % (47-70); Platelet Count 265 K/mm3 (150-450); RBC Distribution Width CV 16.9 % (11.6-14.6); RBC Distribution Width SD 49.7 fl (35.1-43.9); Red Blood Count 4.52 M/mm3 (4.6-6.2); White Blood Count 6.7 K/mm3 (4.4-11.0)
[2025-04-24 17:33] LABS: Amorphous Sediment 3+
[2025-04-24 17:34] VITALS: BP 145/81; PULSE 68; RESP 14; O2SAT 97
[2025-04-24 17:54] LABS: ALB/GLOB Ratio 1.4 RATIO (0.9-2.4); AST(SGOT) 22 U/L (<=37); Alanine Aminotransfer ALT/SGPT 16 U/L (<=46); Albumin, Serum 3.8 g/dL (3.4-4.8); Alkaline Phosphatase 95 U/L (40-129); Anion Gap 9 (5-15); BUN 11 mg/dL (4-19); BUN/Creat Ratio 14.5 RATIO (10-20); Chloride 104 mmol/L (98-108); Creatinine, Serum 0.73 mg/dL (0.70-1.20); EST Glomerular Filtration Rate 96 (>60); Globulin 2.8 g/dL (2.2-4.2); Glucose 103 mg/dL (70-99); Potassium 4.3 mmol/L (3.3-5.1); Protein, Total 6.6 g/dL (5.9-8.4); Sodium Level 136 mmol/L (133-145); Total Bilirubin 0.41 mg/dL (0.00-1.30); Troponin T High Sensitivity 8 ng/L (<=22)
[2025-04-24 19:28] VITALS: BP 120/81; PULSE 61; RESP 18; TEMP 36.6; O2SAT 94
== END 2025-04-24 19:29 | disposition home or self-care (01) ==
PROVIDERS: Emergency Provider Emergency Medicine; PCP Student in an Organized Health Care Education/Training Program; Visit Provider Emergency Medicine
DX: T67.5XXA Heat exhaustion, unspecified, initial encounter (principal); X30.XXXA Exposure to excessive natural heat, initial encounter; R10.84 Generalized abdominal pain; Z87.891 Personal history of nicotine dependence
CPT/HCPCS: 70450; 74177; 80053; 81001; 84484; 85025; 93005; 99284; Q9967; A4216